=== PATIENT | female | born 1955 | race Caucasian/White ===

== ENCOUNTER 2018-12-17 07:21 | Day surgery (SDC) | payer MEDICARE, BC ==
[2018-12-17] VITALS (25 sets, daily range): BP systolic 81–147; BP diastolic 50–96; PULSE 78–100; RESP 12–58; Ht 175.3 cm; Wt 81.0 kg
[~2018-12-17] VITALS: Ht 175.3 cm; Wt 81.0 kg
[~2018-12-17 07:21] MED LIST: ARIP2TAB17 PO; ARIP5TAB14 PO; BUPR300T48 PO; CLINDAMYCIN 900 MG (PMX) 50 ML IVPB ONE; DIVA-48 PO; DIVA-73 PO; GABA100C14 PO; GUAI118L94 PO; MELO15TA30 PO; NAPR-688 PO; SODI44SP11 NASAL; VENL75TA2 PO
[2018-12-17] MEDS ORDERED: BUPIVACAINE 0.25% (MPF) 30 ML INJ ONE (09:19)
[2018-12-17] MEDS ORDERED: POLYMYXIN/BACITRACIN 1L IRRIG ONE (09:19)
[2018-12-17] MEDS ORDERED: METOCLOPRAMIDE 10 MG INJ ONE (09:26)
[2018-12-17] MEDS ORDERED: ONDANSETRON 4 MG INJ ONE (09:26)
[2018-12-17] MEDS ORDERED: EPHEDrine 25 MG/5 ML SYG ONE (09:26)
[2018-12-17] MEDS ORDERED: CLINDAMYCIN 900 MG (PMX) 50 ML IVPB ONE (09:26)
[2018-12-17] MEDS ORDERED: PROPOFOL 20 ML ONE (09:26)
[2018-12-17] MEDS ORDERED: MEPERIDINE 100 MG INJ ONE (09:26)
[2018-12-17] MEDS ORDERED: LIDOCAINE 2% (SDV) 5 ML INJ ONE (09:26)
[2018-12-17] MEDS ORDERED: FENTAnyl 50 MCG/ML VIAL IV PRN (11:00)
[2018-12-17] MEDS ORDERED: METOCLOPRAMIDE 10 MG INJ IV PRN (11:00)
[2018-12-17] MEDS ORDERED: ONDANSETRON 4 MG INJ IV PRN (11:00)
[2018-12-17] MEDS ORDERED: OXYCODONE/ACETAMINOPHEN (5/325) TAB PO PRN ×2 (11:00)
[2018-12-17] MEDS ORDERED: MEPERIDINE 25 MG INJ IV PRN (11:00)
[2018-12-17] MEDS ORDERED: MIDAZOLAM 1 MG/ML 2 ML INJ IV PRN (11:00)
[2018-12-17] MEDS ORDERED: HYDROmorphONE 1 MG/5 ML IV SYRINGE IV PRN (11:00)
[2018-12-17] MEDS ORDERED: DIPHENHYDRAMINE 50 MG INJ IV PRN (11:00)
[2018-12-17] MEDS ORDERED: BACITRACIN/POLYMYXIN 28.35 GM OINT TOP ONE (11:23)
[2018-12-17] MEDS ORDERED: OCULAR LUBRICANT 3.5 GM OPH OINT ONE (11:41)
[2018-12-17] MEDS: FENTAnyl 50 MCG/ML VIAL IV PRN ×5 (12:13→13:20)
[2018-12-17] MEDS: HYDROmorphONE 1 MG/5 ML IV SYRINGE IV PRN ×4 (12:14→13:00)
[2018-12-17] MEDS ORDERED: ROPIVACAINE 0.5 % 30 ML VIAL ONE (13:30)
[2018-12-17] MEDS ORDERED: KETOROLAC 30 MG INJ IV STA (13:54)
== END 2018-12-17 18:10 | disposition home or self-care (01) ==
LOC: SDS 07:21
PROVIDERS: ATTEND Orthopaedic Surgery
DX: S52.572A Other intraarticular fracture of lower end of left radius, initial encounter for closed fracture (principal); G40.909 Epilepsy, unspecified, not intractable, without status epilepticus; Z87.891 Personal history of nicotine dependence
CPT/HCPCS: C1713; J1170; J2175; J2405; J2765; J2795; J3010